=== PATIENT | male | born 1975 | race Caucasian/White ===

== ENCOUNTER 2020-12-29 09:06 | Emergency (ER) | payer BC, SELFPAY ==
[2020-12-29 09:19] VITALS: BP 130/69; PULSE 80; RESP 19; TEMP 36.9; O2SAT 99; BMI 38.4
--- NOTE | 2020-12-29 09:29 | HMH.EDUTC ---
[facility] [place] Disposition Clinical Impression: Pharyngitis Qualifiers: Pharyngitis/tonsillitis etiology: unspecified etiology Qualified Code(s): J02.9 - Acute pharyngitis, unspecified Disposition: Home, Self-Care Condition on Discharge: Good Instructions: Sore Throat, DI for Pharyngitis/Tonsillopharyngitis -- Adult Additional Instructions: Drink plenty of fluids. Take tylenol or ibuprofen for pain or fever. Take the medications as directed. Follow up with your regular doctor. GO TO THE ER FOR ANY WORSENING SYMPTOMS Prescriptions: Azithromycin [Z-Danny 250mg Tab*] 250 mg PO UD DOSE PK #6 tab Transmission Status: Received by [facility][id number] Referrals: Chinedu Whiting MD [Primary Care Provider] - Time of Disposition: 09:37 Medical Decision Making - Medical Records Medical records reviewed: No: I reviewed the patient's medical records. - Bryan Inquiry Pt receiving controlled substance: No Vital Signs: 12/29/20 09:19 12/29/20 09:38 Temperature 98.4 F 98 F Temperature Source Oral Pulse Rate 79 Pulse Rate [Right] 80 Respiratory Rate 19 19 Blood Pressure 127/71 Blood Pressure [Right Arm] 130/69 Blood Pressure Mean [Right Arm] 89 Blood Pressure Source [Right Arm] Automatic Cuff Blood Pressure Position [Right Arm] Sitting 02 Sat by Pulse Oximetry 99 Oxygen Delivery Method Room Air - Lab Data Lab results reviewed: Yes: I reviewed the patient's lab results. Lab Results 12/29/20 09:29: Strep Scn Rapid Clinic Negative Orders (Tests/Meds): ORDERS Category Date Time Status Strep Screen Confirmation Stat Micro 12/29/20 09:29 Received [facility] [place] HPI - General Stated complaint: sore throat Time Seen by Provider: 12/29/20 09:29 Mode of Arrival: Ambulatory Source of Information: Patient Limitations: No Limitations Description of Symptoms (Recalled from Triage Doc. by RN): pt is having a sore throat and nasal drainage. pt states he was around someone last week that had strep. HEENT Symptoms (Recalled from RN notes): Yes (sore throat) Resp Symptoms (Recalled from RN notes): No Skin Symptoms (Recalled from RN notes): No MS Symptoms (Recalled from RN notes): No Functional Status (Recalled from RN notes): na - History of Present Illness Provider Complaint: He c/o sore throat since yesterday. He has 2 sons that have had strep throat recently. - Related Data Previous Rx's Medication Instructions Recorded Cefdinir [Omnicef 300mg Capsule] 300 mg PO BID #20 cap 09/17/19 predniSONE [Deltasone 10mg tablet] 10 mg PO BID 4 Days #8 tab 09/17/19 Azithromycin [Z-Danny 250mg Tab*] 250 mg PO UD DOSE PK #6 tab 12/29/20 Allergies Allergy/AdvReac Type Severity Reaction Status Date / Time Penicillins Allergy Verified 12/29/20 09:27 - Worker's Comp Is this a Worker's Comp case?: No [facility] History - Hepatitis A Screen Drug use history?: No High risk sexual behaviors?: No History of sexually transmitted infection?: No Currently employed?: No Childcare worker?: No Do you have indoor plumbing?: Yes Do you have electricity?: Yes Attestation statement:: This patient has been screened for Hepatitis A risk factors. I have reviewed the patient's past medical history: Yes - Social History Smoking Status: Unknown if ever smoked Alcohol Intake: never Occupational Status: employed ROS Obtained: Yes All systems reviewed & no additional complaints - Constitutional Constitutional: Reports chills, Denies fever(s), Reports poor appetite, Reports malaise - Eyes Eyes: Denies eye discharge - ENT Ears, Nose, Mouth, and Throat: Reports as per HPI - Cardiovascular Cardiovascular: Denies chest pain - Respiratory Respiratory: Denies chest congestion, Reports cough, Denies dyspnea, Denies stridor, Denies wheezing Physical Exam - General General appearance: alert, in no apparent distress - Head Head exam: atraumatic, normocephalic, normal inspection - Eye Eye e
[2020-12-29 09:31] LABS: UTC Strep Screen (Rapid) Negative (Negative)
[2020-12-29 09:38] VITALS: BP 127/71; PULSE 79; RESP 19; TEMP 36.6
== END 2020-12-29 09:39 | disposition home or self-care (01) ==
PROVIDERS: Emergency Provider Nurse Practitioner Family; PCP Family Medicine
DX: J02.9 Acute pharyngitis, unspecified (principal); Z88.0 Allergy status to penicillin
CPT/HCPCS: 87880; 99202; G0463

== ENCOUNTER 2021-03-15 09:59 | Emergency (ER) | payer BC, SELFPAY ==
[2021-03-15 10:01] VITALS: BP 135/90; PULSE 88; RESP 17; TEMP 36.8; O2SAT 99; BMI 38.4
--- NOTE | 2021-03-15 10:10 | HMH.EDUTC ---
[facility] [place] Disposition Clinical Impression: Sinusitis Qualifiers: Sinusitis location: unspecified location Chronicity: unspecified Qualified Code(s): J32.9 - Chronic sinusitis, unspecified Disposition: Home, Self-Care Condition on Discharge: Good Instructions: Sinusitis, DI for Sinusitis, Sore Throat Additional Instructions: *Monitor Temp, Over the counter Motrin or Tylenol as directed/as needed Tylenol every 4 hours and Motrin every 6 hours (as long as your family doctor has told you that you can take it) for fever or pain. and straight to ER if unable to lower temp less than 101.0 after medication given *Warm salt water gargles may help to soothe the throat *Throat Lozenges *Warm fluids like tea with honey may help to soothe the throat *Sleep elevated *Humidifier/Vaporizer *Flonase 2 sprays in each nostril daily but be aware that it may take 2-3 days before you notice improvement Take medication as prescribed Follow up IMMEDIATELY for new or worsening symptoms or no Noticeable improvement over the next 48-72 hours. 911 for difficulty breathing or swallowing Prescriptions: predniSONE [Deltasone 10mg tablet] 10 mg PO BID #10 tab Transmission Status: Pending to [facility] # Azithromycin [Z-Danny 250mg Tab*] 250 mg PO UD DOSE PK #6 tab Transmission Status: Pending to [facility] # Referrals: Chinedu Whiting MD [Primary Care Provider] - As needed Time of Disposition: 10:15 Medical Decision Making - Bryan Inquiry Pt receiving controlled substance: No Bryan was queried for this patient: No Vital Signs: 03/15/21 10:01 Temperature 98.2 F Temperature Source Oral Pulse Rate [Right] 88 Respiratory Rate 17 Blood Pressure [Right Arm] 135/90 Blood Pressure Mean [Right Arm] 105 Blood Pressure Source [Right Arm] Automatic Cuff Blood Pressure Position [Right Arm] Sitting 02 Sat by Pulse Oximetry 99 Oxygen Delivery Method Room Air [facility] [place] HPI - General Stated complaint: sinus pain Time Seen by Provider: 03/15/21 10:10 Mode of Arrival: Ambulatory Source of Information: Patient Limitations: No Limitations Description of Symptoms (Recalled from Triage Doc. by RN): pt c/o sinus pressure and pain, scratchy throat, and itchy ears x2 days. HEENT Symptoms (Recalled from RN notes): Yes (sinus pressure) Resp Symptoms (Recalled from RN notes): No Skin Symptoms (Recalled from RN notes): No MS Symptoms (Recalled from RN notes): No Functional Status (Recalled from RN notes): na - History of Present Illness Provider Complaint: Patient state that he has been fighting a sinus infection for over a week State that for the last couple of days his sinus pressure and congestion has got worse States that he feels like his ears feel full and itching and having drainage in the back of his throat - Related Data Previous Rx's Medication Instructions Recorded Cefdinir [Omnicef 300mg Capsule] 300 mg PO BID #20 cap 09/17/19 predniSONE [Deltasone 10mg tablet] 10 mg PO BID 4 Days #8 tab 09/17/19 Azithromycin [Z-Danny 250mg Tab*] 250 mg PO UD DOSE PK #6 tab 12/29/20 Azithromycin [Z-Danny 250mg Tab*] 250 mg PO UD DOSE PK #6 tab 03/15/21 predniSONE [Deltasone 10mg tablet] 10 mg PO BID #10 tab 03/15/21 Allergies Allergy/AdvReac Type Severity Reaction Status Date / Time Penicillins Allergy Verified 03/15/21 10:01 - Worker's Comp Is this a Worker's Comp case?: No [facility] History - Hepatitis A Screen Drug use history?: No High risk sexual behaviors?: No History of sexually transmitted infection?: No Currently employed?: No Childcare worker?: No Do you have indoor plumbing?: Yes Do you have electricity?: Yes Attestation statement:: This patient has been screened for Hepatitis A risk factors. I have reviewed the patient's past medical history: Yes - Social History Smoking Status: Unknown if ever smoked Alcohol Intake: never Occupational Status: employed ROS Obtained: Yes All systems reviewed & n
[2021-03-15 10:21] VITALS: BP 132/82; PULSE 85; RESP 17; TEMP 36.8
== END 2021-03-15 10:21 | disposition home or self-care (01) ==
PROVIDERS: Emergency Provider Nurse Practitioner; PCP Family Medicine
DX: J32.9 Chronic sinusitis, unspecified (principal)
CPT/HCPCS: 99202; G0463

== ENCOUNTER 2021-08-06 09:02 | Emergency (ER) | payer BC, SELFPAY ==
[2021-08-06 09:14] VITALS: BP 133/85; PULSE 78; RESP 18; TEMP 37.1; O2SAT 96; BMI 39.1
[2021-08-06 09:17] VITALS: BP 133/85; PULSE 78; RESP 18; TEMP 37.1
[2021-08-06 09:27] LABS: UTC Strep Screen (Rapid) Negative (Negative)
--- NOTE | 2021-08-06 09:29 | HMH.EDUTC ---
[facility] [place] Disposition Clinical Impression: Pharyngitis Qualifiers: Pharyngitis/tonsillitis etiology: unspecified etiology Qualified Code(s): J02.9 - Acute pharyngitis, unspecified Disposition: Home, Self-Care Condition on Discharge: Good Instructions: Strep Throat, DI for Strep Throat Additional Instructions: *Monitor Temp, Over the counter Motrin or Tylenol as directed/as needed Tylenol every 4 hours and Motrin every 6 hours (as long as your family doctor has told you that you can take it) for fever or pain. and straight to ER if unable to lower temp less than 101.0 after medication given *Warm salt water gargles may help to soothe the throat *Throat Lozenges *Warm fluids like tea with honey may help to soothe the throat *Sleep elevated *Humidifier/Vaporizer Take medication as prescribed Your throat swab was sent for culture. Those results are typically sent to your primary care. Be sure to follow up in 2-3 days with your family doctor/primary care physician if no improvement so they can review those result and treat if necessary. If you don?t have a primary care doctor, I recommend you get one but in the mean time, you will have to return to a walk in clinic Follow up IMMEDIATELY for new or worsening symptoms or no Noticeable improvement over the next 48-72 hours. 911 for difficulty breathing or swallowing Prescriptions: methylPREDNISolone [Medrol 4mg tab] 4 mg PO DIRECTED #21 tab Transmission Status: Pending to [facility] # Azithromycin [Z-Danny 250mg Tab] 250 mg PO DIRECTED #6 tab Transmission Status: Pending to [facility] # Referrals: Chinedu Whiting MD [Primary Care Provider] - As needed Forms: Work/School Release Time of Disposition: 09:37 Medical Decision Making - Bryan Inquiry Pt receiving controlled substance: No Bryan was queried for this patient: No Vital Signs: 08/06/21 09:14 08/06/21 09:17 Temperature 98.7 F 98.7 F Temperature Source Oral Pulse Rate 78 Pulse Rate [Left] 78 Respiratory Rate 18 18 Blood Pressure 133/85 Blood Pressure [Right Arm] 133/85 Blood Pressure Mean [Right Arm] 101 02 Sat by Pulse Oximetry 96 - Lab Data Lab results reviewed: Yes: I reviewed the patient's lab results. Lab Results 08/06/21 09:26: Strep Scn Rapid Clinic Negative Orders (Tests/Meds): ORDERS Category Date Time Status Strep Screen Confirmation Routine Micro 08/06/21 09:26 Received [facility] [place] HPI - General Stated complaint: Sore throat, congestion Time Seen by Provider: 08/06/21 09:29 Mode of Arrival: Ambulatory Source of Information: Patient Limitations: No Limitations Description of Symptoms (Recalled from Triage Doc. by RN): pt c/o sore throat and runny nose. pts had strep three weeks ago. HEENT Symptoms (Recalled from RN notes): Yes (sore throat and nasal drainage) Resp Symptoms (Recalled from RN notes): No Skin Symptoms (Recalled from RN notes): No MS Symptoms (Recalled from RN notes): No Functional Status (Recalled from RN notes): na - History of Present Illness Provider Complaint: Patient states that his and step son has had strep throat over the last couple of weeks States that he has been having sore throat and nasal congestion over the last few days that has continued to get worse so he came in to get checked thinking he may have strep throat - Related Data Previous Rx's Medication Instructions Recorded Cefdinir [Omnicef 300mg Capsule] 300 mg PO BID #20 cap 09/17/19 predniSONE [Deltasone 10mg tablet] 10 mg PO BID 4 Days #8 tab 09/17/19 Azithromycin [Z-Danny 250mg Tab*] 250 mg PO UD DOSE PK #6 tab 12/29/20 Azithromycin [Z-Danny 250mg Tab*] 250 mg PO UD DOSE PK #6 tab 03/15/21 predniSONE [Deltasone 10mg tablet] 10 mg PO BID #10 tab 03/15/21 Azithromycin [Z-Danny 250mg Tab] 250 mg PO DIRECTED #6 tab 08/06/21 methylPREDNISolone [Medrol 4mg 4 mg PO DIRECTED #21 tab 08/06/21 tab] Allergies Allergy/AdvR
== END 2021-08-06 09:42 | disposition home or self-care (01) ==
PROVIDERS: Emergency Provider Nurse Practitioner; PCP Family Medicine
DX: J02.9 Acute pharyngitis, unspecified (principal)
CPT/HCPCS: 87880; 99202; G0463

== ENCOUNTER 2022-05-18 11:40 | Emergency (ER) | payer BC, SELFPAY ==
[2022-05-18 11:50] VITALS: BMI 38.0
[2022-05-18 11:55] VITALS: BP 128/75; PULSE 88; RESP 18; TEMP 36.7; O2SAT 98; BMI 37.8
[2022-05-18 12:08] VITALS: BP 128/75; PULSE 88; RESP 18; TEMP 36.7; O2SAT 98
== END 2022-05-18 12:09 | disposition home or self-care (01) ==
PROVIDERS: Emergency Provider Nurse Practitioner; PCP Family Medicine
DX: Z23 Encounter for immunization (principal)
CPT/HCPCS: 90471; 90632; 99212; G0463

== ENCOUNTER 2022-09-10 08:05 | Emergency (ER) | payer BC, SELFPAY ==
--- NOTE | 2022-09-10 08:25 | EXP.UTC ---
Discharge Plan Disposition Patient Disposition: Home, Self-Care Condition: Good Prescriptions Prescriptions: New benzonatate [benzonatate] 100 mg capsule 100 mg PO TIDP PRN (Reason: Cough) Qty: 30 0RF methylprednisolone 4 mg Tablets,Dose Pack 4 mg PO DIRECTED Qty: 21 0RF guaifenesin [Mucinex] 600 mg tablet extended release 12hr 600 - 1,200 mg PO BIDP PRN (Reason: Congestion) Qty: 30 0RF azithromycin [Zithromax] 250 mg tablet 250 mg PO UD DOSE PK Qty: 6 0RF Rx Instructions: Take two (2) tablets today, then one (1) tablet days #2 thru #5 No Action azithromycin 250 MG tablet 250 mg PO UD DOSE PK Qty: 6 0RF Rx Instructions: Take two (2) tablets today, then one (1) tablet days #2 thru #5 azithromycin 250 MG tablet 250 mg PO DIRECTED Qty: 6 0RF Rx Instructions: Take two (2) tablets on day #1, then one (1) tablet day #2 thru #5 methylprednisolone 4 MG tablet 4 mg PO DIRECTED Qty: 21 0RF Rx Instructions: Take as directed on package instructions prednisone 10 MG tablet 10 mg PO BID 4 Days Qty: 8 0RF cefdinir 300 MG capsule 300 mg PO BID Qty: 20 0RF prednisone 10 MG tablet 10 mg PO BID Qty: 10 0RF azithromycin 250 MG tablet 250 mg PO UD DOSE PK Qty: 6 0RF Rx Instructions: Take two (2) tablets today, then one (1) tablet days #2 thru #5 Referrals Follow up/Referrals: Chinedu Whiting MD [Primary Care Provider] - See instructions Activity Restrictions/Add. Instructions Additional Instructions/Restrictions: Drink plenty of fluids. Take tylenol or ibuprofen for pain or fever. Take the medications as directed. Follow up with your regular doctor. GO TO THE ER FOR ANY WORSENING SYMPTOMS Clinical Impressions Clinical Impression: Sinusitis Instructions Patient Instructions: Sinusitis, DI for Sinusitis Discharge ED Provider: Davis Wade [facility] HPI General Stated complaint: Congestion,Cough Time Seen by Provider: 09/10/22 08:25 History of Present Illness Provider Complaint: He states that for the past 5 days he has had sinus pressure, sinus congestion and a cough. He has a productive cough with greenish sputum also. Related Data Previous Rx's Medication Instructions Recorded cefdinir 300 mg capsule 300 mg PO BID #20 caps 09/17/19 prednisone 10 mg tablet 10 mg PO BID 4 days #8 tabs 09/17/19 azithromycin 250 mg tablet 250 mg PO UD DOSE PK #6 tabs 12/29/20 azithromycin 250 mg tablet 250 mg PO UD DOSE PK #6 tabs 03/15/21 prednisone 10 mg tablet 10 mg PO BID #10 tabs 03/15/21 azithromycin 250 mg tablet 250 mg PO DIRECTED #6 tabs 08/06/21 methylprednisolone 4 mg tablet 4 mg PO DIRECTED #21 tabs 08/06/21 azithromycin 250 mg tablet 250 mg PO UD DOSE PK #6 tabs 09/10/22 (Zithromax) benzonatate 100 mg capsule 100 mg PO TIDP PRN Cough #30 caps 09/10/22 guaifenesin 600 mg tablet, 600 - 1,200 mg PO BIDP PRN 09/10/22 extended release 12 hr (Mucinex) Congestion #30 tabs methylprednisolone 4 mg tablets in 4 mg PO DIRECTED #21 tabs 09/10/22 a dose pack Allergies Allergy/AdvReac Type Severity Reaction Status Date / Time amoxicillin Allergy Verified 09/10/22 08:39 Penicillins Allergy Verified 09/10/22 08:39 [facility] Disclaimer: The information contained in this section may have been updated after the patient was seen, as this information can be updated by other users. Social History Smoking Status: Unknown if ever smoked alcohol intake: never current occupational status: employed Travel in the last 8 weeks: None ROS Obtained: Yes All systems reviewed & no additional complaints except as documented Constitutional Constitutional: Denies chills and Denies fever(s) Eyes Eyes: Denies eye discharge ENT Ears, Nose, Mouth, and Throat: Denies dizziness, Denies otalgia and Denies sore throat Cardiovascular Cardiovascular: Denies ches
[2022-09-10 08:36] VITALS: BP 125/71; PULSE 97; RESP 16; TEMP 36.9; O2SAT 97; BMI 39.1
[2022-09-10 09:07] VITALS: BP 125/71; PULSE 97; RESP 16; TEMP 36.9
== END 2022-09-10 09:08 | disposition home or self-care (01) ==
PROVIDERS: Emergency Provider Nurse Practitioner Family; PCP Family Medicine
DX: R05.9 Cough, unspecified (principal); R09.81 Nasal congestion; Z79.52 Long term (current) use of systemic steroids; Z79.899 Other long term (current) drug therapy; Z88.0 Allergy status to penicillin; Z88.1 Allergy status to other antibiotic agents; Z88.3 Allergy status to other anti-infective agents
CPT/HCPCS: 99212; G0463

== ENCOUNTER 2023-02-09 08:01 | Emergency (ER) | payer BC, SELFPAY ==
[2023-02-09 08:13] VITALS: BP 136/83; PULSE 82; RESP 18; TEMP 37.1; O2SAT 98; BMI 38.6
[2023-02-09 08:31] LABS: UTC Strep Screen (Rapid) Negative (Negative)
--- NOTE | 2023-02-09 08:35 | EXP.UTC ---
Discharge Plan Disposition Patient Disposition: Home, Self-Care Condition: Good Prescriptions Prescriptions: New azithromycin [Zithromax Z-Danny] 250 mg tablet See Rx Instructions .ROUTE .COMPLEX 5 Days Qty: 6 0RF Rx Instructions: For 250 mg dose pack: take 500 mg today (day 1), then 250 mg for 4 days (days 2-5) methylprednisolone [Medrol (Danny)] 4 mg tablets,dose pack See Rx Instructions .Route .COMPLEX 6 Days Qty: 21 0RF Rx Instructions: taper pack; No Action azithromycin 250 MG tablet 250 mg PO UD DOSE PK Qty: 6 0RF Rx Instructions: Take two (2) tablets today, then one (1) tablet days #2 thru #5 azithromycin 250 MG tablet 250 mg PO DIRECTED Qty: 6 0RF Rx Instructions: Take two (2) tablets on day #1, then one (1) tablet day #2 thru #5 methylprednisolone 4 MG tablet 4 mg PO DIRECTED Qty: 21 0RF Rx Instructions: Take as directed on package instructions benzonatate [benzonatate] 100 mg capsule 100 mg PO TIDP PRN (Reason: Cough) Qty: 30 0RF methylprednisolone 4 mg Tablets,Dose Pack 4 mg PO DIRECTED Qty: 21 0RF guaifenesin [Mucinex] 600 mg tablet extended release 12hr 600 - 1,200 mg PO BIDP PRN (Reason: Congestion) Qty: 30 0RF azithromycin [Zithromax] 250 mg tablet 250 mg PO UD DOSE PK Qty: 6 0RF Rx Instructions: Take two (2) tablets today, then one (1) tablet days #2 thru #5 prednisone 10 MG tablet 10 mg PO BID 4 Days Qty: 8 0RF cefdinir 300 MG capsule 300 mg PO BID Qty: 20 0RF prednisone 10 MG tablet 10 mg PO BID Qty: 10 0RF azithromycin 250 MG tablet 250 mg PO UD DOSE PK Qty: 6 0RF Rx Instructions: Take two (2) tablets today, then one (1) tablet days #2 thru #5 Referrals Follow up/Referrals: Provider,Referral, MD [Primary Care Provider] - See instructions Activity Restrictions/Add. Instructions Additional Instructions/Restrictions: *Monitor Temp, Over the counter Motrin or Tylenol as directed/as needed Tylenol every 4 hours and Motrin every 6 hours (as long as your family doctor has told you that you can take it) for fever or pain. and straight to ER if unable to lower temp less than 101.0 after medication given *Warm salt water gargles may help to soothe the throat *Throat Lozenges? *Warm fluids like tea with honey may help to soothe the throat? *Sleep elevated *Humidifier/Vaporizer Your throat swab was sent for culture. Those results are typically sent to your primary care. Be sure to follow up in 2-3 days with your family doctor/primary care physician if no improvement so they can review those result and treat if necessary. If you don?t have a primary care doctor, I recommend you get one but in the mean time, you will have to return to a walk in clinic Follow up IMMEDIATELY for new or worsening symptoms or no Noticeable improvement over the next 48-72 hours. 911 for difficulty breathing or swallowing Clinical Impressions Clinical Impression: Pharyngitis Instructions Patient Instructions: Sore Throat, DI for Nasal Congestion Discharge ED Provider: Noelle Hunt [facility] General Stated complaint: drainage, sore throat Mode of Arrival: Ambulatory Source of Information: Patient Limitations: No Limitations Time Seen by Provider: 02/09/23 08:35 Description of Symptoms (Recalled from Triage Doc. by RN): pt c/o a sore throat and nasal drainage x2d HEENT Symptoms (Recalled from RN notes): Yes Resp Symptoms (Recalled from RN notes): No Skin Symptoms (Recalled from RN notes): No MS Symptoms (Recalled from RN notes): No Functional Status (Recalled from RN notes): wnl History of Present Illness Provider Complaint: Patient states that he has been having sinus congestion and drainage in the back of his throat with sore throat that has got worse over the last couple of days States that today he was feeling worse so he came in Related Data Previous Rx's Medication
[2023-02-09 08:46] VITALS: BP 136/83; PULSE 82; RESP 18; TEMP 37.1
== END 2023-02-09 08:51 | disposition home or self-care (01) ==
PROVIDERS: Emergency Provider Nurse Practitioner
DX: J02.9 Acute pharyngitis, unspecified (principal)
CPT/HCPCS: 87880; 99212; 99214; G0463

== ENCOUNTER 2023-07-10 08:07 | Emergency (ER) | payer BC, SELFPAY ==
[2023-07-10 08:07] VITALS: BP 133/94; PULSE 80; RESP 18; O2SAT 96; BMI 39.9
--- NOTE | 2023-07-10 08:18 | EXP.UTC ---
Discharge Plan Disposition Patient Disposition: Home, Self-Care Condition: Good Prescriptions Prescriptions: New azithromycin [Zithromax] 250 mg tablet 250 mg PO UD DOSE PK Qty: 6 0RF Rx Instructions: Take two (2) tablets today, then one (1) tablet days #2 thru #5 benzonatate [benzonatate] 100 mg capsule 100 mg PO TIDP PRN (Reason: Cough) Qty: 30 0RF methylprednisolone 4 mg Tablets,Dose Pack 4 mg PO DIRECTED Qty: 21 0RF Referrals Follow up/Referrals: Chinedu Whiting MD [Primary Care Provider] - See instructions Activity Restrictions/Add. Instructions Additional Instructions/Restrictions: Drink plenty of fluids. Take tylenol or ibuprofen for pain or fever. Take the medications as directed. Follow up with your regular doctor. GO TO THE ER FOR ANY WORSENING SYMPTOMS Clinical Impressions Clinical Impression: Sinusitis, Pharyngitis Stand Alone Forms Stand Alone Forms: Work/School Release Instructions Patient Instructions: Sore Throat, DI for Pharyngitis/Tonsillopharyngitis -- Adult, DI for Sinusitis Discharge ED Provider: Davis Wade [facility] General Stated complaint: sore throat Time Seen by Provider: 07/10/23 08:17 History of Present Illness Provider Complaint: He states that for the past 3 days he has had worsening sinus congestion, sore throat, and a cough. Related Data Previous Rx's Medication Instructions Recorded azithromycin 250 mg tablet 250 mg PO UD DOSE PK #6 tabs 07/10/23 (Zithromax) benzonatate 100 mg capsule 100 mg PO TIDP PRN Cough #30 caps 07/10/23 methylprednisolone 4 mg tablets in 4 mg PO DIRECTED #21 tabs 07/10/23 a dose pack Allergies Allergy/AdvReac Type Severity Reaction Status Date / Time amoxicillin Allergy Verified 07/10/23 08:38 Penicillins Allergy Verified 07/10/23 08:38 [facility] Disclaimer: The information contained in this section may have been updated after the patient was seen, as this information can be updated by other users. Social History Smoking Status: Unknown if ever smoked alcohol intake: never current occupational status: employed Travel in the last 8 weeks: None ROS Obtained: Yes All systems reviewed & no additional complaints except as documented Constitutional Constitutional: Reports poor appetite Eyes Eyes: Reports system reviewed and no additional complaints, except as documented ENT Ears, Nose, Mouth, and Throat: Reports as per HPI Cardiovascular Cardiovascular: Reports system reviewed and no additional complaints, except as documented and Denies chest pain Respiratory Respiratory: Denies shortness of breath, Denies chest congestion, Reports cough, Denies stridor and Denies wheezing Gastrointestinal Gastrointestingal: Reports system reviewed and no additional complaints, except as documented; Denies abdominal pain, diarrhea or vomiting Musculoskeletal Musculoskeletal: Reports system reviewed and no additional complaints, except as documented and Denies arthralgias Integumentary/Breasts Skin/Breast: Reports system reviewed and no additional complaints, except as documented and Denies rash Neurologic Neurologic: Denies paresthesias Allergic/Immunologic Allergic/Immunologic: Denies wheezing Physical Exam General General appearance: alert and in no apparent distress Eye Eye exam: Present normal appearance, PERRL and EOMI ENT ENT exam: Present mucous membranes moist and normal external ear exam Expanded ENT Exam External ear exam: Present normal external inspection TM/Canal exam: Bilateral TM: erythema and bulging Nose exam: Absent sinus tenderness Nasal speculum exam: Bilateral: normal Mouth exam: Present normal external inspection; Absent drooling Teeth exam: Present normal inspection Throat exam: Present tonsillar erythema and tonsillomegaly Neck Neck exam: Present normal inspection, full ROM and trachea midline; Absent tendern
[2023-07-10 08:30] LABS: UTC Strep Screen (Rapid) Negative (Negative)
[2023-07-10 09:22] VITALS: BP 133/94; PULSE 80; RESP 18; TEMP 37; O2SAT 96
== END 2023-07-10 09:21 | disposition home or self-care (01) ==
PROVIDERS: Emergency Provider Nurse Practitioner Family; PCP Family Medicine
DX: J02.9 Acute pharyngitis, unspecified (principal); J01.90 Acute sinusitis, unspecified
CPT/HCPCS: 87880; 99212; 99214; G0463

== ENCOUNTER 2023-10-08 13:26 | Emergency (ER) | payer BC, SELFPAY ==
[2023-10-08 13:35] VITALS: BP 133/89; PULSE 85; RESP 18; TEMP 37.3; O2SAT 98; BMI 39.9
--- NOTE | 2023-10-08 13:51 | ED_ITS ---
Discharge Plan Disposition Patient Disposition: Home, Self-Care Condition: Good Prescriptions Prescriptions: New methylprednisolone 4 mg Tablets,Dose Pack 4 mg PO DIRECTED 6 Days Qty: 21 0RF Rx Instructions: Take 1 pack as directed for 6 days cefdinir 300 mg capsule 300 mg PO BID Qty: 20 0RF guaifenesin [Mucinex] 600 mg tablet extended release 12hr 600 - 1,200 mg PO BIDP PRN (Reason: Congestion) Qty: 30 0RF Referrals Follow up/Referrals: Chinedu Whiting MD [Primary Care Provider] - See instructions Activity Restrictions/Add. Instructions Additional Instructions/Restrictions: Drink plenty of fluids. Take tylenol or ibuprofen for pain or fever. Take the medications as directed. Follow up with your regular doctor. GO TO THE ER FOR ANY WORSENING SYMPTOMS Don't start the oral steroids until tomorrow, since you had the shot here today. Clinical Impressions Clinical Impression: Otitis media Instructions Patient Instructions: Middle Ear Infection, Dexamethasone Injection Discharge ED Provider: Davis Wade [facility] General Stated complaint: left ear pain Mode of Arrival: Ambulatory Source of Information: Patient Limitations: No Limitations Time Seen by Provider: 10/08/23 13:50 Description of Symptoms (Recalled from Triage Doc. by RN): Pt stated that for the last 2 months he has been battling with an ear infection. Has left ear pain and sinus pressure. HEENT Symptoms (Recalled from RN notes): Yes Resp Symptoms (Recalled from RN notes): No Skin Symptoms (Recalled from RN notes): No MS Symptoms (Recalled from RN notes): No Functional Status (Recalled from RN notes): n/a History of Present Illness Provider Complaint: He states that he has had left ear pain for the past 1 week. Over the past 2 months he has been treated for an ear infection twice already. He denies other symptoms. Related Data Previous Rx's Medication Instructions Recorded cefdinir 300 mg capsule 300 mg PO BID #20 caps 10/08/23 guaifenesin 600 mg tablet, 600 - 1,200 mg PO BIDP PRN 10/08/23 extended release 12 hr (Mucinex) Congestion #30 tabs methylprednisolone 4 mg tablets in 4 mg PO DIRECTED 6 days #21 tabs 10/08/23 a dose pack Allergies Allergy/AdvReac Type Severity Reaction Status Date / Time amoxicillin Allergy Verified 10/08/23 13:44 Penicillins Allergy Verified 10/08/23 13:44 Worker's Comp Is this a Worker's Comp case?: No [facility] Disclaimer: The information contained in this section may have been updated after the patient was seen, as this information can be updated by other users. Social History Smoking Status: Unknown if ever smoked alcohol intake: never current occupational status: employed Travel in the last 8 weeks: None ROS Obtained: Yes All systems reviewed & no additional complaints except as documented Constitutional Constitutional: Denies chills, Reports fever(s) and Reports poor appetite Eyes Eyes: Denies eye discharge ENT Ears, Nose, Mouth, and Throat: Denies ear discharge, Reports otalgia, Denies hearing loss, Denies sinus pain and Reports sore throat Cardiovascular Cardiovascular: Denies chest pain and Denies dyspnea Respiratory Respiratory: Denies chest congestion, Reports cough and Denies dyspnea Gastrointestinal Gastrointestingal: Denies abdominal pain, diarrhea, nausea or vomiting Musculoskeletal Musculoskeletal: Denies arthralgias Integumentary/Breasts Skin/Breast: Denies rash Physical Exam General General appearance: alert and in no apparent distress Head Head exam: atraumatic, normocephalic and normal inspection Eye Eye exam: Present normal appearance; Absent PERRL or EOMI ENT ENT exam: Present mucous membranes moist and normal external ear exam Expanded ENT Exam TM/Canal exam: Bilateral TM: erythema, bulging and effusion Nose exam: Absent sinus tenderness Nasal speculum exam: Bilateral: normal Mouth exam: Present normal external inspection and other; Absent drooling Teeth exam: Present normal inspection Throat exam: Present tonsillar erythema and tonsillomegaly Neck Neck exam: Present normal inspection, full ROM and trachea midline; Absent tenderness, meningismus or lymphadenopathy Chest Chest inspection: Present normal inspection and symmetric chest wall rise; Absent tenderness Respiratory Respiratory exam: Present normal lung sounds bilaterally; Absent respiratory distress, wheezes or stridor Cardiovascular Cardiovascular exam: Present regular rate, normal rhythm and normal heart sounds; Absent tachycardia or irregular rhythm Abdominal Exam Abdominal exam: Present soft and normal bowel sounds; Absent distention, tenderness, guarding, rebound or rigidity Extremities Exam Extremities exam: Present normal inspection and normal capillary refill; Absent tenderness, joint swelling or calf tenderness Back Exam Back exam: Present normal inspection and full ROM; Absent tenderness, CVA tenderness (R) or CVA tenderness (L) Neurological Exam Neurological exam: Present alert, oriented X3, CN II-XII intact, normal gait and reflexes normal; Absent motor sensory deficit Psychiatric Psychiatric exam: Present normal affect and normal mood Skin Skin exam: Present warm, dry, intact and normal color Lymphatic Lymphatic Findings: no adenopathy Medical Decision Making Medical Records Medical records reviewed: No I reviewed the patient's medical records. Bryan Inquiry Pt receiving controlled substance: No Vital Signs: 10/08/23 13:35 Temperature 99.1 F Temperature Source Oral Pulse Rate [Right Radial] 85 Respiratory Rate 18 Blood Pressure [Right Arm] 133/89 Blood Pressure Mean [Right Arm] 103 Blood Pressure Source [Right Arm] Automatic Cuff Blood Pressure Position [Right Arm] Sitting 02 Sat by Pulse Oximetry 98 Oxygen Delivery Method Room Air
[2023-10-08] MEDS: DEXAMETHASONE 4MG/ML 1ML VIAL 8 MG IM (14:02)
[2023-10-08 14:10] VITALS: BP 133/89; PULSE 85; RESP 18; TEMP 37.3; O2SAT 98
== END 2023-10-08 14:10 | disposition home or self-care (01) ==
PROVIDERS: Emergency Provider Nurse Practitioner Family; PCP Family Medicine
DX: H66.93 Otitis media, unspecified, bilateral (principal); R50.9 Fever, unspecified; R07.0 Pain in throat; R09.81 Nasal congestion
CPT/HCPCS: 96372; 99212; 99214; G0463

== ENCOUNTER 2024-02-12 12:33 | Outpatient (CLI) | payer BC, SELFPAY ==
[2024-02-12 18:34] LABS: Coronavirus 19, PCR Not Detected (NotDetected); Influenza A, PCR Not Detected (NotDetected); Influenza B, PCR Not Detected (NotDetected)
== END 2024-02-12 23:59 | disposition home or self-care (01) ==
LOC: LAB.DROPOF 02-13 12:35
PROVIDERS: PCP Student in an Organized Health Care Education/Training Program; Visit Provider Student in an Organized Health Care Education/Training Program
DX: R05.9 Cough, unspecified (principal); R51.9 Headache, unspecified; R09.82 Postnasal drip; R06.09 Other forms of dyspnea; Z20.828 Contact with and (suspected) exposure to other viral communicable diseases
CPT/HCPCS: 87636

== ENCOUNTER 2024-07-26 23:33 | Emergency (ER) | payer BC, SELFPAY ==
[2024-07-26 23:40] VITALS: BP 172/111; PULSE 94; RESP 20; TEMP 36.6; O2SAT 99; BMI 41.0
--- NOTE | 2024-07-26 23:43 | HMH.EDGENADL ---
Discharge Plan Disposition Patient Disposition: Home, Self-Care Prescriptions Prescriptions: New methocarbamol 500 mg tablet 500 mg PO Q6H PRN (Reason: pain) Qty: 30 0RF lidocaine 5 % adhesive patch,medicated 1 patch topical DAILY PRN (Reason: pain) Qty: 30 0RF Rx Instructions: leave on most painful area for up to 12 hrs No Action albuterol sulfate [Ventolin HFA] 90 mcg/actuation HFA aerosol inhaler 1 inh inhalation QID PRN (Reason: shortness of breath or wheezing) Qty: 8.5 1RF methylprednisolone 4 mg tablets,dose pack See Rx Instructions PO PER PKG DIR Qty: 21 0RF Rx Instructions: PO PER PKG DIR doxycycline hyclate 100 mg tablet 100 mg PO BID Qty: 20 0RF Referrals Follow up/Referrals: Chinedu Whiting MD [Primary Care Provider] - See instructions Activity Restrictions/Add. Instructions Additional Instructions/Restrictions: Please take Tylenol and ibuprofen and use methocarbamol and lidocaine patches as needed for pain. Please follow-up with your primary care provider. Please return to the emergency department if you develop any new or worsening symptoms or become concerned for your health. Clinical Impressions Clinical Impression: Acute right flank pain Print Language Print Language: Latvian Discharge ED Provider: Tashi Torres General Adult HPI General Chief complaint: PAIN Stated complaint: right side abd pain Time Seen by Provider: 07/26/24 23:43 History of Present Illness HPI narrative: 48-year-old male with history of obesity presents for acute onset right-sided flank pain. He reports it happened while he was driving and then got worse while he was watching his daughters sporting event. He reports nothing like this has happened before, denies history of stones, denies any urinary symptoms or hematuria. Denies any recent fever illness or trauma. Related Data Previous Rx's ?Medication ?Instructions ?Recorded albuterol sulfate 90 mcg/actuation 1 inh inhalation QID PRN shortness 02/12/24 aerosol inhaler (Ventolin HFA) of breath or wheezing #8.5 grams methylprednisolone 4 mg tablets in See Rx Instructions PO PER PKG DIR 02/12/24 a dose pack #21 tabs doxycycline hyclate 100 mg tablet 100 mg PO BID #20 tabs 02/13/24 lidocaine 5 % topical patch 1 patch topical DAILY PRN pain #30 07/27/24 ea methocarbamol 500 mg tablet 500 mg PO Q6H PRN pain #30 tabs 07/27/24 Allergies Allergy/AdvReac Type Severity Reaction Status Date / Time amoxicillin Allergy Verified 02/12/24 13:06 Penicillins Allergy Verified 02/12/24 13:06 [facility] Disclaimer: The information contained in this section may have been updated after the patient was seen, as this information can be updated by other users. Medical History Hepatitis A vaccination not up to date Surgical History No significant past surgical history Family History Other No significant family history Social History Smoking Status: Never smoker alcohol intake: never current occupational status: employed Travel in the last 8 weeks: None Other Medical History Have you received the Flu Vaccine for this season: No Have you received the Pneumonia Vaccine: No ROS Obtained: Yes All systems reviewed & no additional complaints except as documented Physical Exam General General appearance: alert and in no apparent distress Head Head exam: atraumatic and normocephalic Eye Eye exam: Present normal appearance, PERRL and EOMI ENT ENT exam: Present normal oropharynx and normal external ear exam Neck Neck exam: Present normal inspection and full ROM Chest Chest inspection: Present normal inspection and symmetric chest wall rise; Absent tenderness Respiratory Respiratory exam: Present normal lung sounds bilaterally; Absent respiratory distress Cardiovascular Cardiovascular exam: Present regular rate and normal rhythm Abdominal Exam Abdominal exam: Present soft; Absent distention, tenderness or guarding Extremities Exam Extremities exam: Present normal inspection; Absent edema or joint swelling Back Exam Back exam: Present normal inspection; Absent tenderness, CVA tenderness (R) or CVA tenderness (L) Neurological Exam Neurological exam: Present alert and oriented X3; Absent motor sensory deficit Psychiatric Psychiatric exam: Present normal affect and normal mood Skin Skin exam: Present warm, dry and normal color Lymphatic Lymphatic Findings: no adenopathy Medical Decision Making Medical Records Medical records reviewed: Yes I reviewed the patient's medical records. Screening: Per USPSTF and CDC recommendations, given the prevalence of disease in our region, it is our hospital?s policy to screen for HIV and viral Hepatitis for all patients aged 18 and over and those with ongoing risk factors. Bryan Inquiry Pt receiving controlled substance: No Bryan was queried for this patient: No Vital Signs: 07/26/24 23:40 07/27/24 00:00 07/27/24 00:30 Temperature 97.9 F Temperature Source Oral Pulse Rate 82 82 Pulse Rate [Left Radial] 94 H Respiratory Rate 20 Blood Pressure 186/106 H 174/99 H Blood Pressure [Right Arm] 172/111 H Blood Pressure Mean [Right Arm] 131 Blood Pressure Source Blood Pressure Source [Right Arm] Automatic Cuff Blood Pressure Position 02 Sat by Pulse Oximetry 99 98 98 Oxygen Delivery Method Room Air 07/27/24 00:45 07/27/24 01:15 07/27/24 01:59 Temperature 97.9 F Temperature Source Oral Pulse Rate 84 85 81 Pulse Rate [Left Radial] Respiratory Rate 20 Blood Pressure 140/88 156/95 H 155/99 H Blood Pressure [Right Arm] Blood Pressure Mean [Right Arm] Blood Pressure Source Automatic Cuff Blood Pressure Source [Right Arm] Blood Pressure Position Sitting 02 Sat by Pulse Oximetry 97 97 Oxygen Delivery Method Room Air Lab Data Lab results reviewed: Yes I reviewed the patient's lab results. Lab Results 07/26/24 23:45: WBC 7.3, RBC 5.34, Hgb 16.8, Hct 49.4, MCV 92.7, MCH 31.5 H, MCHC 34.0, RDW 13.4, Plt Count 204, MPV 7.7, Neut % (Auto) 53.4, Lymph % (Auto) 36.4, [place] % (Auto) 7.0, Eos % (Auto) 1.8, Baso % (Auto) 1.4, Neut # (Auto) 3.9, Lymph # (Auto) 2.6, [place] # (Auto) 0.5, Eos # (Auto) 0.1, Baso # (Auto) 0.1, Sodium 141, Potassium 3.8, Chloride 104, Carbon Dioxide 30, Anion Gap 10.8, BUN 17, Creatinine 1.10, Estimated Creat Clear 144, Estimated GFR 72, Est GFR ( Amer) 87, Glucose 102 H, Calcium 9.3, Total Bilirubin 0.8, AST 45, ALT 62, Alkaline Phosphatase 78, Total Protein 8.7 H, Albumin 5.1 H, Globulin 3.6 H, Albumin/Globulin Ratio 1.4, HIV 1&2 Antibody Rapid Nonreactive 07/27/24 00:37: Urine Color Yellow, Urine Appearance Clear, Urine pH 6.0, Ur Specific [place] >= 1.030, Urine Protein Negative, Urine Glucose (UA) Negative, Urine Ketones Negative, Urine Blood Negative, Urine Nitrate Negative, Urine Bilirubin Negative, Urine Urobilinogen 0.2, Ur Leukocyte Esterase Negative, Urine RBC None, Urine WBC None, Ur Squamous Epith Cells None, Urine Bacteria Trace 07/26/24 23:45 07/26/24 23:45 Orders (Tests/Meds): ED MEDICATIONS Discontinued Medications Generic Name Dose Route Start Last Admin Trade Name Freq PRN Reason Stop Dose Admin Iopamidol 80 ml 07/27/24 01:09 07/27/24 01:09 Iopamidol-370 (76%);100ml Bottle IV 07/27/24 01:10 80 ml ONCE ONE Administration Ketorolac Tromethamine 30 mg 07/26/24 23:47 07/26/24 23:57 Ketorolac 30mg/Ml Vial IV 07/26/24 23:48 30 mg ONCE ONE Administration Morphine Sulfate 4 mg 07/27/24 00:45 07/27/24 00:56 Morphine 4mg/Ml Syringe IV 07/27/24 00:46 4 mg ONCE ONE Administration Sodium Chloride 50 ml 07/27/24 01:09 07/27/24 01:09 0.9 % Sodium Chloride 50 Ml Vial IV 07/27/24 01:10 50 ml ONCE ONE Administration Sodium Chloride 10 ml 07/27/24 01:09 07/27/24 01:09 Sodium Chloride 0.9% 10ml Syr (Rad Only) IV 08/26/24 01:08 10 ml NEEDED PRN Administration Maintain IV Site ORDERS Category Date Time Status CT angio abdomen pelvis Stat Cat Scan 07/27/24 00:51 Completed CBC w/Auto Diff [Complete Blood Count Auto Diff] Stat Lab 07/26/24 23:45 Completed CMP [Comprehensive Metabolic Panel] Stat Lab 07/26/24 23:45 Completed HIV (1&2) Antibody Rapid Stat Lab 07/26/24 23:45 Completed Hep C Ab with Reflex to RNA Stat Lab 07/26/24 23:45 Received UA [Urinalysis and Microscopic] Stat Lab 07/27/24 00:37 Completed Medical Decision Narrative: 48-year-old male presents for acute right flank pain. History was obtained via interactive discussion with patient. On arrival, patient is [afebrile, hemodynamically stable but mildly hypertensive, satting appropriately, alert, oriented x4, GCS 15], moving all extremities spontaneously. Full physical exam performed and significant for no right upper quadrant tenderness, no significant flank tenderness on exam. Differential includes but is not limited to kidney stone, pyelonephritis, acute aortic syndrome, pancreatitis, cholecystitis. Patient was given Toradol, morphine for symptomatic management and correction of underlying abnormalities. Workup initiated including CBC CMP urinalysis CT abdomen and pelvis. On re-evaluation, patient [remains afebrile, HD stable.] Laboratory workup independently interpreted by me and significant for urinalysis without evidence of bleeding or infection, no significant leukocytosis, normal renal function, normal electrolytes. Imaging independently interpreted by me and significant for normal aorta without evidence of dissection, normal kidneys without evidence of obstructing stone. See radiology read for full review of final results. Given patient history, exam and workup, patient's presentation most likely represents flank pain of uncertain etiology most likely been negative workup. These findings were communicated with patient and he was discharged in stable condition with prescription for Robaxin and instructions regarding symptomatic care and return precautions.. Procedures Risk/Benefits of Procedure(s) Were Explained: Yes Critical Care Critical Care Time Critical Care Time: No
[2024-07-26 23:55] LABS: Basophils # 0.1 K/mm3 (0-0.2); Basophils % 1.4 % (0.1-2.0); Eosinophils # 0.1 K/mm3 (0.0-0.4); Eosinophils % 1.8 % (0.1-12.0); Hematocrit 49.4 % (42.0-52.0); Hemoglobin 16.8 g/dL (14.1-18.0); Lymphocytes # 2.6 K/mm3 (0.7-4.5); Lymphocytes % 36.4 % (10-50); Mean Corpuscular Hemoglobin 31.5 pg (27.0-31.2); Mean Corpuscular Volume 92.7 fl (80-94); Mean Platelet Volume 7.7 fl (7.4-10.4); Monocytes # 0.5 K/mm3 (0.1-1.0); Neutrophils # 3.9 K/mm3 (1.8-7.8); Neutrophils % 53.4 % (37.0-80.0); Platelet Count 204 K/mm3 (142-424); Red Blood Count 5.34 M/mm3 (4.60-6.20); Red Cell Distribution Width 13.4 % (11.5-17.5); White Blood Count 7.3 K/mm3 (4.8-10.8)
[2024-07-26] MEDS: KETOROLAC 30MG/ML VIAL 30 MG IV (23:57)
[2024-07-27] VITALS: BP 186/106; PULSE 82; O2SAT 98
[2024-07-27 00:02] LABS: Alanine Aminotransferase 62 U/L (12-78); Albumin Level 5.1 g/dl (3.5-5.0); Albumin/Globulin Ratio 1.4 (1.1-1.8); Alkaline Phosphatase 78 U/L (38-126); Anion Gap 10.8 mEq/L (5-15); Aspartate Amino Transferase 45 U/L (17-59); Bilirubin,Total 0.8 mg/dl (0.2-1.3); Blood Urea Nitrogen 17 mg/dl (9-20); Calcium 9.3 mg/dl (8.4-10.2); Carbon Dioxide 30 mmol/L (22.0-30.0); Chloride 104 mmol/L (98-107); Creatinine Clearance Estimated 144 mL/min (50-200); Estimated Glomerular Filt Rate 72 ml/min (>60); GFR (African American) 87 ML/MIN (>60); Globulin 3.6 g/dL (1.3-3.2); Glucose 102 mg/dl (74-100); Potassium 3.8 mmoL/L (3.5-5.1); Sodium 141 mmol/L (136-145); Total Protein,Serum 8.7 g/dl (6.3-8.2)
[2024-07-27 00:30] VITALS: BP 174/99; PULSE 82; O2SAT 98
[2024-07-27 00:44] LABS: Microscopic, Urine URINE MICROSCOPIC (MICROSCOPIC)
[2024-07-27 00:45] VITALS: BP 140/88; PULSE 84; O2SAT 97
[2024-07-27 00:45] LABS: Appearance,Urine CLEAR (Clear); Bilirubin,Urine Negative (Negative); Blood, Urine Negative (Negative); Color,Urine YELLOW (Yellow); Glucose,Urine (UA) Negative (Negative); Ketones,Urine Negative (Negative); Leukocyte Esterase,Urine Negative (Negative); Nitrate,Urine Negative (Negative); Protein,Urine Negative (Negative); Specific Gravity, Urine >= 1.030 (1.005-1.030); Urobilinogen,Urine 0.2 EU/dl (0.2)
--- NOTE | 2024-07-27 00:51 | CT_ITS ---
PROCEDURE INFORMATION: Exam: CTA Abdomen and Pelvis With Contrast Exam date and time: 07/27/2024 1:03 AM Age: 48 years old Clinical indication: Abdominal pain; Flank; Right lower quadrant (rlq); Additional info: Right flank pain TECHNIQUE: Imaging protocol: Computed tomographic angiography of the abdomen and pelvis with contrast. Exam focused on the arteries. 3D rendering (Not supervised by radiologist): MIP and/or 3D reconstructed images were created by the technologist. Radiation optimization: All CT scans at this facility use at least one of these dose optimization techniques: automated exposure control; mA and/or kV adjustment per patient size (includes targeted exams where dose is matched to clinical indication); or iterative reconstruction. Contrast material: ISOUVE 370; Contrast volume: 80 ml; Contrast route: INTRAVENOUS (IV); COMPARISON: No relevant prior studies available. FINDINGS: Aorta: No aortic aneurysm. No aortic dissection. Celiac trunk and mesenteric arteries: No occlusion or significant stenosis. Renal arteries: No occlusion or significant stenosis. Right iliac arteries: No occlusion or significant stenosis. Left iliac arteries: No occlusion or significant stenosis. Liver: No mass. Gallbladder and biliary ducts: Unremarkable. No calcified stones. No ductal dilation. Pancreas: Unremarkable. No mass. No ductal dilation. Spleen: Unremarkable. No splenomegaly. Adrenal glands: Small right adrenal adenoma. Kidneys and ureters: Unremarkable. No solid mass. No hydronephrosis. Stomach and bowel: Unremarkable. No obstruction. No mucosal thickening. Appendix: Normal appendix Intraperitoneal space: No free fluid Lymph nodes: Unremarkable. No enlarged lymph nodes. Urinary bladder: Unremarkable. No mass. Reproductive: Unremarkable as visualized. Bones/joints: No acute fracture. Soft tissues: Unremarkable. IMPRESSION: Normal CT angiogram abdomen and pelvis. No evidence of aortic dissection or major arterial occlusion/stenosis.
[2024-07-27 00:56] LABS: Bacteria,Urine Trace /lpf
[2024-07-27] MEDS: MORPHINE 4MG/ML SYRINGE 4 MG IV (00:56)
[2024-07-27 00:59] LABS: HIV (1&2) Antibody Rapid NONREACTIVE (NONREACTIVE)
[2024-07-27] MEDS: IOPAMIDOL-370 (76%);100ML BOTTLE 80 ML IV (01:09)
[2024-07-27] MEDS: SODIUM CHLORIDE 0.9% 10ML SYR (RAD ONLY) 10 ML IV (01:09)
[2024-07-27] MEDS: 0.9 % SODIUM CHLORIDE 50 ML VIAL IV (01:09)
[2024-07-27 01:15] VITALS: BP 156/95; PULSE 85; O2SAT 97
[2024-07-27 01:59] VITALS: BP 155/99; PULSE 81; RESP 20; TEMP 36.6; O2SAT 95
[2024-07-28 08:29] LABS: HCV Ab Non Reactive (Non Reactive)
== END 2024-07-27 02:05 | disposition home or self-care (01) ==
PROVIDERS: Emergency Provider Emergency Medicine; PCP Family Medicine
DX: R10.9 Unspecified abdominal pain (principal)
CPT/HCPCS: 74174; 80053; 81001; 85025; 86803; 87389; 96374; 96375; 99285; J1885; J2270; Q9967

== ENCOUNTER 2024-08-08 09:03 | Outpatient (CLI) | payer BC, SELFPAY | END 2024-08-08 23:59 | disposition home or self-care (01) | LOC: LAB.DROPOF 08-09 09:14 | PROVIDERS: PCP Student in an Organized Health Care Education/Training Program; Visit Provider Student in an Organized Health Care Education/Training Program | DX: R10.9 Unspecified abdominal pain (principal) | CPT/HCPCS: 87086 ==

== ENCOUNTER 2024-08-14 11:12 | Outpatient (CLI) | payer BC, SELFPAY ==
--- NOTE | 2024-08-14 11:20 | XR_ITS ---
PROCEDURE INFORMATION: Exam: XR Thoracic Spine Exam date and time: 08/14/2024 11:21 AM Age: 49 years old Clinical indication: Pain in thoracic spine; Additional info: RT flank pain TECHNIQUE: Imaging protocol: Radiologic exam of the thoracic spine. Views: 3 views. Total images: 3 COMPARISON: CT ANGIO ABDOMEN PELVIS 07/27/2024 1:03 AM FINDINGS: Bones/joints: Slight rightward curvature of the thoracic spine. The thoracic spine demonstrates mild degenerative changes at multiple levels. No evidence of acute fracture. Soft tissues: Unremarkable. IMPRESSION: 1. Slight rightward curvature of the thoracic spine. 2. The thoracic spine demonstrates mild degenerative changes at multiple levels. 3. No evidence of acute fracture.
== END 2024-08-14 23:59 | disposition home or self-care (01) ==
PROVIDERS: PCP Family Medicine; Visit Provider Family Medicine
DX: R10.9 Unspecified abdominal pain (principal)
CPT/HCPCS: 72072

== ENCOUNTER 2024-08-19 07:49 | Outpatient (CLI) | payer BC, SELFPAY ==
--- NOTE | 2024-08-19 07:53 | US_ITS ---
FINAL REPORT CLINICAL HISTORY: NAUSEA-- ruq pain COMPARISON: None FINDINGS: Sonographic images of the right upper quadrant were obtained. The pancreas is obscured. There is increased echogenicity of the liver consistent with fatty infiltration. The gallbladder appears normal without evidence of gallstones.There is no evidence of biliary ductal dilatation.The common duct measures 2 mm. Limited images of the right kidney are unremarkable. IMPRESSION: Fatty infiltration of the liver. Pancreas obscured by overlying bowel gas. Reviewed, Interpreted and Dictated by Terell Law III, MD Transcribed by Helen Guerin Authenticated and [facility]
== END 2024-08-19 23:59 | disposition home or self-care (01) ==
LOC: RAD 07:50
PROVIDERS: PCP Family Medicine; Visit Provider Family Medicine
DX: R11.0 Nausea (principal)
CPT/HCPCS: 76705